=== PATIENT | male | born 1945 | race Caucasian/White ===

== ENCOUNTER 2019-07-18 00:52 | Emergency (ER) | payer OTHER, BC ==
[2019-07-18 01:12] VITALS: TEMP 97.7; BMI 35.9
--- NOTE | 2019-07-18 01:12 | PDOC ---
Attending Attestation - Resident Resident Name: Tima Osuna - ED Attending Attestation I have performed the following: I have examined & evaluated the patient, The case was reviewed & discussed with the resident, I agree w/resident's findings & plan - HPI HPI: 07/18/19 04:56 see resident hpi - Physicial Exam PE: 07/18/19 04:56 see resident exam 07/18/19 04:56 - Medical Decision Making 07/18/19 04:56 74-year-old male with low back pain after reaching for an object Patient does admit to history of low back pain and lumbar injury in the past He also admits to alcohol earlier in the day He states he has not had a fall or any blunt trauma Due to patient's age and recent alcohol use a CT scan of the abdomen and pelvis with IV contrast has been ordered to evaluate for AAA versus lumbar fracture versus retroperitoneal hematoma Patient received Robaxin Tylenol and a Lidoderm patch Plan for DC home pending results
--- NOTE | 2019-07-18 02:27 | PDOC ---
History of Present Illness - General Chief Complaint: Pain Stated Complaint: BACK PAIN Time Seen by Provider: 07/18/19 01:12 History Source: Patient Exam Limitations: No Limitations - History of Present Illness Initial Comments: 74 yo M with a hx of HTN, prostate cancer, and ETOH abuse presents to the emergency department with right flank and right thoracic back pain for 2 days. 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 He reached over to grab an item on the floor of the front passenger side and felt a strain in his back. Since then, he has had sharp pain with worsening with engagement of his torso. Denies the following: lightheadedness, palpitations, chest pain, SOB, abdominal pain, dysuria, hematuria, diarrhea, hematochezia, and FND. The pain radiates from the right thoracic back to the right flank and is 10/10 severity with worsening pain with movement. Allergies: NKDA Past History - Past Medical History Allergies/Adverse Reactions: Allergies Allergy/AdvReac Type Severity Reaction Status Date / Time shellfish derived Allergy Unknown Verified 08/24/15 09:07 No Known Drug Allergies Allergy Verified 08/24/15 09:07 shrimp Allergy Unknown Swelling Uncoded 08/24/15 09:07 Home Medications: Ambulatory Orders Valsartan/Hydrochlorothiazide [Valsartan-Hctz 160-25 mg Tab] 1 each PO DAILY 05/05 Pantoprazole Sodium [Protonix -] 40 mg PO DAILY #90 tablet.ec 01/30/16 Cancer: Yes (H/O BLADDER.) COPD: Yes GI Disorders: Yes (CECAL ADENOMA) Disorders: Yes HTN: Yes Hypercholesterolemia: Yes Liver Disease: Yes (FATTY LIVER-ALCOHOLIC LIVER DS) Psychiatric Problems: Yes (ANXIETY.) - Surgical History Orthopedic Surgery: Yes (LLE FRACTURE SURGERY) - Psycho Social/Smoking Cessation Hx Smoking Status: No Smoking History: Never smoked Have you smoked in the past 12 months: No Number of Cigarettes Smoked Daily: 0 Information on smoking cessation initiated: No Hx Alcohol Use: No Drug/Substance Use Hx: No Substance Use Type: Alcohol Hx Substance Use Treatment: Yes Review of Systems - Review of Systems Able to Perform ROS?: Yes Is the patient limited Polish proficient: No Constitutional: No: Chills, Diaphoresis, Fever, Weakness HEENTM: No: Eye Pain, Ear Pain, Nose Pain, Throat Pain, Mouth Pain Respiratory: No: Cough, Shortness of Breath, Hemoptysis Cardiac (ROS): No: Chest Pain, Lightheadedness, Palpitations, Syncope, Chest Tightness ABD/GI: No: Constipated, Diarrhea, Nausea, Rectal Bleeding, Vomiting, Tarry Stools : Yes: Flank Pain (right). No: Burning, Dysuria, Hematuria, Incontinence Musculoskeletal: Yes: Back Pain (right thoracic back pain. no midline tenderness. ). No: Joint Pain, Neck Pain Integumentary: No: Bruising, Erythema, Rash Neurological: No: Headache Psychiatric: No: Change in Appetite Endocrine: No: Unexplained Weight Loss Hematologic/Lymphatic: No: Anemia *Physical Exam - Vital Signs Last Vital Signs Temp Pulse Resp BP Pulse Ox 97.7 F 62 20 132/75 96 07/18/19 01:05 07/18/19 01:05 07/18/19 01:05 07/18/19 01:05 07/18/19 01:05 - Physical Exam General Appearance: Yes: Nourished, Appropriately Dressed, Obese. No: Apparent Distress, Alcohol on Breath, Intoxicated HEENT: positive: EOMI, SHERYL, Normal Voice, Symmetrical, Pharynx Normal, Hearing Grossly Normal. negative: Pale Conjunctivae, Scleral Icterus (R), Scleral Icterus (L), Muffled/Hoarse voice, Pharyngeal Erythema, Tonsillar Exudate, Tonsillar Erythema, Excessive drooling Neck: positive: Trachea midline, Supple. negative: Tender, Lymphadenopathy (R) , Lymphadenopathy (L), Tender lateral, Tender midline Respiratory/Chest: positive: Lungs Clear, Normal Breath Sounds. negative: Chest Tender, Respiratory Distress, Accessory Muscle Use Cardiovascular: positive: Regular Rhythm, Regular Rate, S1, S2. negative: Systolic Murmur Gastrointestinal/Abdominal: positive: Normal Bowel Sounds, Flat, Soft. negative : Tender Lymphatic: negative: Adenopathy Musculoskeletal: positive: Normal Inspection, Other (right flank pain on palpation. very reproducible tenderness in the thoracic T3-T7 right side with palpation. ). negative: CVA Tenderness, Vertebral Tenderness (no midline tenderness) Extremity: positive: Normal Capillary Refill, Normal Inspection, Normal Range of Motion. negative: Tender Integumentary: positive: Normal Color, Dry, Warm. 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 negative: EOM Palsy, Facial Droop , Numbness, Sensory Deficit ED Treatment Course - LABORATORY CBC & Chemistry Diagram: 07/18/19 02:46 07/18/19 02:46 Medical Decision Making - Medical Decision Making 74 yo M with a hx of HTN, prostate cancer, and ETOH abuse presents to the emergency department with right flank and right thoracic back pain for 2 days. 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 Initial vitals: Initial Vital Signs Temp Pulse Resp BP Pulse Ox 97.7 F 62 20 132/75 96 07/18/19 01:05 07/18/19 01:05 07/18/19 01:05 07/18/19 01:05 07/18/19 01:05 Work up: patient presents with back pain with known inciting event when he reached over. Likely msk pain, however will need to rule out UTI vs nephrolithiasis vs cholelithiasis vs AAA vs pyelonephritis Laboratory Tests 07/18/19 07/18/19 07/18/19 02:46 02:46 03:15 WBC 8.7 RBC 3.98 L Hgb 14.1 Hct 41.0 D MCV 103.0 H MCH 35.5 H MCHC 34.4 RDW 16.4 H Plt Count 102 L MPV 7.5 D Absolute Neuts (auto) 5.1 Neutrophils % 58.7 D Lymphocytes % 29.1 D Monocytes % 8.3 Eosinophils % 3.1 D Basophils % 0.8 Nucleated RBC % 0 Sodium 139 Potassium 4.6 Chloride 105 Carbon Dioxide 24 Anion Gap 10 BUN 9.0 Creatinine 0.7 Est GFR (CKD-EPI)AfAm 107.75 Est GFR (CKD-EPI)NonAf 92.97 Random Glucose 105 Calcium 8.5 Total Bilirubin 1.2 H AST 72 H ALT 48 Alkaline Phosphatase 109 Total Protein 6.6 Albumin 3.5 Urine Color Yellow Urine Appearance Clear Urine pH 5.5 Ur Specific [place] 1.006 L Urine Protein Negative Urine Glucose (UA) Negative Urine Ketones Negative Urine Blood Negative Urine Nitrite Negative Urine Bilirubin Negative Urine Urobilinogen 1.0 Ur Leukocyte Esterase Negative Robaxin, tylenol, and lidoderm and ibuprofen given for pain relief. No leukocytosis. AST elevated <2:1 ratio to ALT. UA negative for hematuria or UTI. Patient underwent a CT abdomen and pelvis to rule out AAA. Patient's report showed cholelithiasis. In addition, there was a suspected solid mass tumor on the liver. No evidence of aorta enlargement to suggest AAA. The patient was given the results of the CT and a copy of the report was printed out and given to the patient directly. Patient was instructed to follow up with their primary care physicians within the week after discharge. They described that their doctor is not available until july and I insisted they call the office within the next business day to be seen for follow up imaging as soon as possible. he agreed to the plan. Patient to be discharged. Discharge - Discharge Information Problems reviewed: Yes Clinical Impression/Diagnosis: Back pain Disposition: HOME - Admission No - Follow up/Referral Referrals: Jones Kitchen MD [Primary Care Provider] - - Patient Discharge Instructions Patient Printed Discharge Instructions: DI for Low Back Pain, DI for Thoracic Back Pain Additional Instructions: You were seen in the emergency department for your back pain. Please follow up with your primary medical doctor within 1 week after discharge for follow up care and management. You were given the CT report indicating the suspected mass on the liver. Please take ibuprofen and tylenol for pain management as directed on the label. Please return to the emergency department if you have worsening or new concerning symptoms. Thank you. - Post Discharge Activity Work/Back to School Note: Back to Work
[2019-07-18] MEDS ORDERED: METHOCARBAMOL 500 MG TABLET PO ONE (02:29)
[2019-07-18] MEDS ORDERED: LIDOCAINE 5% TOPICAL PATCH TP ONE (02:31)
[2019-07-18] MEDS ORDERED: ACETAMINOPHEN 1000 MG/100 ML VIAL (NON FORMULARY) IVPB ONE (02:31)
[2019-07-18] MEDS ORDERED: LIDOCAINE 5% TOPICAL PATCH ONE (02:34)
[2019-07-18] MEDS ORDERED: ACETAMINOPHEN INJECTION 100 ML IVPB ONE (02:34)
[2019-07-18] MEDS ORDERED: METHOCARBAMOL 500 MG TABLET ONE (02:34)
[2019-07-18 03:22] LABS: BASO % 0.8 % (0-2.0); EOS % 3.1 % (0-4.5); HEMOGLOBIN 14.1 GM/dL (11.7-16.9); LYMPH % 29.1 % (8-40); MCH 35.5 pg (25.7-33.7); MCHC 34.4 g/dl (32.0-35.9); MEAN PLT VOLUME 7.5 fl (7.5-11.1); MONO % 8.3 % (3.8-10.2); NEUT % 58.7 % (42.8-82.8); PLATELET COUNT 102 K/MM3 (134-434); RBC 3.98 M/mm3 (4.00-5.60); RDW 16.4 % (11.9-15.9); WHITE BLOOD COUNT 8.7 K/mm3 (4.0-10.0)
[2019-07-18 03:31] LABS: PH,URINE 5.5 (5.0-8.0); URINE APPEARANCE CLEAR; URINE BILIRUBIN NEGATIVE (NEGATIVE); URINE COLOR YELLOW; URINE GLUCOSE (UA) NEGATIVE (NEGATIVE); URINE KETONE NEGATIVE (NEGATIVE); URINE LEUK ESTERASE NEGATIVE (NEGATIVE); URINE NITRITE NEGATIVE (NEGATIVE); URINE PROTEIN NEGATIVE (NEGATIVE)
[2019-07-18 04:15] LABS: ALBUMIN 3.5 g/dl (3.4-5.0); BILIRUBIN,TOTAL 1.2 mg/dL (0.2-1); CALCIUM 8.5 mg/dL (8.5-10.1); CREATININE 0.7 mg/dL (0.55-1.3); POTASSIUM 4.6 mmol/L (3.5-5.1); TOT PROT 6.6 g/dl (6.4-8.2)
[2019-07-18 06:21] VITALS: BP 143/74; PULSE 58
[2019-07-18] MEDS ORDERED: IBUPROFEN 600 MG TABLET (FP) PO ONE (06:26)
[2019-07-18] MEDS ORDERED: LIDOCAINE PATCH REMOVAL MC SCH (22:00)
== END 2019-07-18 07:53 | disposition home or self-care (01) ==
LOC: JER 00:52
PROC: 3E033NZ Introduction of Analgesics, Hypnotics, Sedatives into Peripheral Vein, Percutaneous Approach (ICD-10-PCS; principal; 2019-07-18)
DX: M54.6 Pain in thoracic spine (principal); Z91.013 Allergy to seafood; I10 Essential (primary) hypertension; F10.10 Alcohol abuse, uncomplicated; X58.XXXA Exposure to other specified factors, initial encounter; Y93.89 Activity, other specified; Y92.89 Other specified places as the place of occurrence of the external cause; Y99.0 Civilian activity done for income or pay
CPT/HCPCS: 36415; 72131-TC; 74177-TC; 80053; 81003; 85025; 96374; 99283-25; J0131

== ENCOUNTER 2020-03-18 18:09 | Emergency (ER) | payer OTHER, BC ==
[2020-03-18 18:26] VITALS: TEMP 96.9; BMI 38.0
--- NOTE | 2020-03-18 18:58 | PDOC ---
History of Present Illness - General Chief Complaint: Injury Stated Complaint: FALL Time Seen by Provider: 03/18/20 18:25 History Source: Patient Exam Limitations: No Limitations - History of Present Illness Initial Comments: 03/18/20 18:54 74M PMH etoh abuse, peripheral neuropathy, and HTN BIBEMS for evaluation after having his legs give out twice today. After dinner at a restaurant, pt was walking to car and said his knees felt weak and gave out. Was assisted to his car by bystanders and patient proceeded to a bar to meet up with friends. He had a second episode of knees feeling weak and giving out while getting out of the car to the bar. Was assisted into the bar where EMS was called. He denies LOC, head strike. Denies n/v, cp/palpitations, sob. Unknown last tetanus date. Pt recently lost his and per daughter in law who phoned in, pt has been drinking heavily this week and today. Pt does endorse etoh today and daily etoh. Past History - Medical History Allergies/Adverse Reactions: Allergies Allergy/AdvReac Type Severity Reaction Status Date / Time shellfish derived Allergy Unknown Verified 03/18/20 18:26 No Known Drug Allergies Allergy Verified 03/18/20 18:26 shrimp Allergy Unknown Swelling Uncoded 03/18/20 18:26 Home Medications: Ambulatory Orders Valsartan/Hydrochlorothiazide [Valsartan-Hctz 160-25 mg Tab] 1 each PO DAILY 01/29/16 Pantoprazole Sodium [Protonix -] 40 mg PO DAILY #90 tablet.ec 01/30/16 Cancer: Yes (H/O BLADDER.) COPD: Yes GI Disorders: Yes (CECAL ADENOMA) Disorders: Yes HTN: Yes Hypercholesterolemia: Yes Liver Disease: Yes (FATTY LIVER-ALCOHOLIC LIVER DS) Psychiatric Problems: Yes (ANXIETY.) - Surgical History Orthopedic Surgery: Yes (LLE FRACTURE SURGERY) - Immunization History Td Vaccination: Yes TDAP Vaccination: Yes - Psycho-Social/Smoking History Smoking Status: No Smoking History: Never smoked Have you smoked in the past 12 months: No Number of Cigarettes Smoked Daily: 0 Information on smoking cessation initiated: No - Substance Abuse Hx (Audit-C & DAST Scrn) In the last yr the pt used illegal drug/Rx for NonMed reason: No Score: Yes response is considered Positive: 0 Screen Result (Positive result requires Nsg. DAST-10): Negative Review of Systems - Review of Systems Able to Perform ROS?: Yes Comments:: CONSTITUTIONAL: Denies F / C HEENT: Denies headache, lightheadedness, dizziness, changes in vision / hearing, sore throat, rhinorrhea RESP: Denies SOB, cough CARD: Denies chest pain, palpitations GI: Denies N / V / D, abdominal pain, inability to tolerate PO : Denies dysuria NEURO: + b/l knee weakness today PSYCH: + recent life stressors MSK: Denies back pain SKIN: Denies rashes *Physical Exam - Vital Signs Last Vital Signs Temp Pulse Resp BP Pulse Ox 96.9 F L 88 16 105/62 95 03/18/20 18:20 03/18/20 18:20 03/18/20 18:20 03/18/20 18:20 03/18/20 18:20 - Physical Exam GEN: NAD, AAOx3 HEENT: NC/AT, EOMI, PERRL, CN II-XII grossly intact. No facial asymmetry. Normal voice. Supple neck w/ FROM. CV: S1/S2, RRR, no m/r/g LUNG: CTAB, no wheezes, crackles, rales, rhonchi. GI: Soft, ndnt, +BS, no guarding, no rebound. No masses. Neg CVAT b/l. MSK: FROM, no TTP or effusions of the right knee, there is an abrasion of the right knee. Non tender extremities. No obvious deformities of all extremities. SKIN: Warm, dry, no rashes appreciated. PSYCH: Normal mood and affect. NEURO: Moving all extremities well. 5/5 strength UE and LE b/l, symmetric sensation. ambulation deferred - pt has walker at bedside ED Treatment Course - LABORATORY CBC & Chemistry Diagram: 03/18/20 14:43 03/18/20 14:43 Medical Decision Making - Medical Decision Making 03/21/20 21:47 74M BIBEMS for eval of b/l leg weakness. Neuro intact exam - ambulation deferred. Will eval for electrolyte and metabolic disturbances. Pt due for EMG with outpatient neuro shortly. - cbc, cmp - EKG - XR knee - ambulate - reassess and dispo accordingly 03/18/20 21:52 labs reviewed wound cleaned and bacitracin applied EKG 20:44 HR 81 QTc 494 NSR left axis, RBBB, no AIDA/D patient ambulates well with walker; witnessed ambulating around ED after extensive discussion with patient and his daughter in november, decision was made to discharge patient home w/ neurology follow that is scheduled for next week. questions and concerns addressed. return precautions provided. Discharge - Discharge Information Problems reviewed: Yes Clinical Impression/Diagnosis: Bilateral leg weakness Condition: Fair Disposition: HOME - Admission No - Follow up/Referral Referrals: Jones Kitchen MD [Primary Care Provider] - - Patient Discharge Instructions Additional Instructions: Follow up with your Neurologist as scheduled. Follow up with your primary care doctor in the next 10 days. Continue your home medications as prescribed. We recommend that you gradually cut back on your alcohol use. Return to the Emergency Department if you experience new or worsening symptoms, including but not limited to: - inability to walk - falls - anything that concerns you - Post Discharge Activity
[2020-03-18] MEDS ORDERED: DIPHTH,PERTUSS(ACELL),TET 0.5 ML DISP.SYRIN IM ONE ×2 (19:02→19:38)
--- NOTE | 2020-03-18 19:58 | PDOC ---
Documentation entered by Gus Loyd SCRIBE, acting as scribe for Lacy Goldman MD. Lacy Goldman MD: This documentation has been prepared by the scribe, Gus Cutler SCRIBE, under my direction and personally reviewed by me in its entirety. I confirm that the documentation accurately reflects all work, treatment, procedures, and medical decision making performed by me. Attending Attestation - Resident Resident Name: HubertMarco - ED Attending Attestation I have performed the following: I have examined & evaluated the patient, The case was reviewed & discussed with the resident, I agree w/resident's findings & plan, Exceptions are as noted - HPI HPI: 03/18/20 18:39 The patient is a 74 year old male with a significant past medical history of obesity, prostate cancer, cecal adenoma, HTN, HLD, fatty liver, and anxiety who presents to the emergency department, [facility], for evaluation of worsening bilateral leg weakness s/p two falls. The patient reports while getting out of his car, he fell to his knees both yesterday and today. He endorses chronic bilateral lower extremity weakness and peripheral neuropathy while using a walker at baseline. The patient reports he is scheduled for an EMG workup by his neurologist for this weakness. The patient denies chest/abdominal/back pain, cough, and shortness of breath. Denies fever, chills, nausea, vomiting, and/or any GI symptoms. Denies any symptoms. Denies any other symptoms. Allergies: NKDA, shellfish, shrimp Social Hx: The patient reports alcohol abuse Surgical Hx: left lower extremity fracture surgery PCP: Dr. Kitchen - Physicial Exam PE: 03/18/20 18:25 GENERAL: Slightly disheveled,obese 74 yo male HUGO with chronic leg weakness and fell onto his knee getting out of the car HEENT: Normocephalic, atraumatic. PERRLA, EOMI. NECK: Supple. Full ROM. No JVD. CARDIOVASCULAR: Regular rate and rhythm. No murmurs, rubs, or gallops. Distal pulses are 2+ and symmetric. PULMONARY: Lungs clear to auscultation bilaterally. No wheezing, rales or rhonchi. ABDOMINAL: Soft,protuberant MUSCULOSKELETAL: Abrasion to right knee,LE bilaterally, no deformities EXTREMITIES: No clubbing. Mild edema in lower extremities. No calf tenderness. SKIN: Warm and dry. NEUROLOGICAL: Alert, awake, appropriate. Cranial nerves 2-12 intact PSYCHIATRIC: Cooperative. Good eye contact. Appropriate mood and affect. 03/18/20 18:48 03/18/20 19:56 03/18/20 21:12 - Medical Decision Making 03/18/20 20:16 Plan check pt's gait/knee xray, labs and re assess and d/c home 03/18/20 21:12 pt is able to ambulate, No fracture seen on plain films 03/18/20 21:29 ekg RBBB 03/18/20 21:30 we spoke with the pt about being admitted but he refuses. He called his sister in law and she tried to convince him to stay but he will take a taxi home Discharge - Discharge Information Problems reviewed: Yes Clinical Impression/Diagnosis: Bilateral leg weakness Condition: Fair Disposition: HOME - Follow up/Referral Referrals: Jones Kitchen MD [Primary Care Provider] - - Patient Discharge Instructions Additional Instructions: Follow up with your Neurologist as scheduled. Follow up with your primary care doctor in the next 10 days. Continue your home medications as prescribed. We recommend that you gradually cut back on your alcohol use. Return to the Emergency Department if you experience new or worsening symptoms, including but not limited to: - inability to walk - falls - anything that concerns you - Post Discharge Activity
[2020-03-18 20:11] LABS: BASO % 1.3 % (0-2.0); EOS % 0.5 % (0-4.5); HEMATOCRIT 33.4 % (35.4-49); HEMOGLOBIN 11.1 GM/dL (11.7-16.9); LYMPH % 11.5 % (8-40); MCH 37.5 pg (25.7-33.7); MCHC 33.2 g/dl (32.0-35.9); MEAN CELL VOLUME 112.9 fl (80-96); MEAN PLT VOLUME 7.5 fl (7.5-11.1); MONO % 11.9 % (3.8-10.2); NEUT % 74.8 % (42.8-82.8); PLATELET COUNT 98 K/MM3 (134-434); RBC 2.96 M/mm3 (4.00-5.60); RDW 17.7 % (11.9-15.9); WHITE BLOOD COUNT 12.4 K/mm3 (4.0-10.0)
[2020-03-18 20:42] LABS: ALBUMIN 2.8 g/dl (3.4-5.0); ALK PHOS 318 U/L (45-117); ANION GAP 16 MMOL/L (8-16); BILIRUBIN,TOTAL 2.6 mg/dL (0.2-1); BLOOD UREA NITROGEN 6.7 mg/dL (7-18); CALCIUM 8.3 mg/dL (8.5-10.1); CHLORIDE 92 mmol/L (98-107); CO2 20 mmol/L (21-32); CREATININE 0.8 mg/dL (0.55-1.3); GLUCOSE,RANDOM 113 mg/dL (74-106); SGOT/AST 96 U/L (15-37); SGPT/ALT 35 U/L (13-61); SODIUM 128 mmol/L (136-145); TOT PROT 5.9 g/dl (6.4-8.2)
[2020-03-18 21:17] LABS: ANISOCYTOSIS 2+; MACROCYTOSIS 2+; PLATELET ESTIMATE DECREASED
[2020-03-18] MEDS ORDERED: BACITRACIN 0.9 GM PACKET ONE (21:30)
[2020-03-18 22:03] VITALS: BP 118/78; PULSE 86
--- NOTE | 2020-03-19 11:07 | EKG ---
Test Reason : Blood Pressure : / mmHG Vent. Rate : 081 BPM Atrial Rate : 081 BPM P-R Int : 206 ms QRS Dur : 134 ms QT Int : 426 ms P-R-T Axes : 060 -42 023 degrees QTc Int : 494 ms NORMAL SINUS RHYTHM LEFT AXIS DEVIATION RIGHT BUNDLE BRANCH BLOCK ABNORMAL ECG WHEN COMPARED WITH ECG OF 06-JAN-2015 12:56, RIGHT BUNDLE BRANCH BLOCK IS NOW PRESENT Confirmed by MD Brian, Nikos ([id number]) on 03/19/2020 11:07:27 AM Referred By: Confirmed By:Nikos Torres MD
== END 2020-03-18 22:03 | disposition home or self-care (01) ==
LOC: JER 18:09
PROC: 3E0234Z Introduction of Serum, Toxoid and Vaccine into Muscle, Percutaneous Approach (ICD-10-PCS; principal; 2020-03-18)
DX: M62.81 Muscle weakness (generalized) (principal)
CPT/HCPCS: 36415; 73562-TC-RT-FY; 80053; 82550; 84484; 85025; 90471; 90715; 93005; 93010; 99285-25

== ENCOUNTER 2020-10-17 04:07 | Day surgery (SDC) | payer BC, OTHER ==
[2020-10-16 12:36] VITALS: BMI 34.0
[2020-10-17] MEDS ORDERED: BUPIVACAINE HCL/PF 0.75% 10 ML VIAL ONE (07:13)
[2020-10-17] MEDS ORDERED: LIDOCAINE HCL/PF 1% SDV 5ML VIAL ONE (07:13)
[2020-10-17] MEDS ORDERED: SODIUM CHLORIDE 0.9% P/F 10 ML VIAL IJ ONE (07:30)
[2020-10-17] MEDS ORDERED: IOHEXOL 180 MG/1 ML ML IJ ONE (09:51)
[2020-10-17] MEDS ORDERED: LIDOCAINE HCL 1%, 10 MG/ML (20ML VIAL) INF ONE (09:52)
[2020-10-17] MEDS ORDERED: BUPIVACAINE HCL/PF 0.75% 10 ML VIAL NR ONE (09:53)
[2020-10-17 11:34] VITALS: BP 106/54; PULSE 72; TEMP 98
== END 2020-10-17 11:00 | disposition home or self-care (01) ==
LOC: JASU-SURG 04:07
PROVIDERS: ATTEND Pain Medicine Pain Medicine
PROC: BR16YZZ Fluoroscopy of Lumbar Facet Joint(s) using Other Contrast (ICD-10-PCS; 2020-10-17)
PROC: 3E0T3BZ Introduction of Anesthetic Agent into Peripheral Nerves and Plexi, Percutaneous Approach (ICD-10-PCS; principal; 2020-10-17 09:00)
DX: M47.816 Spondylosis without myelopathy or radiculopathy, lumbar region (principal)
CPT/HCPCS: 76000-TC-FY

== ENCOUNTER 2020-11-07 04:22 | Day surgery (SDC) | payer BC ==
[2020-11-06 18:27] VITALS: BMI 34.0
[~2020-11-07 04:22] MED LIST: BUPIVACAINE HCL/PF 0.75% 10 ML VIAL PNB ONE
[2020-11-07] MEDS ORDERED: BUPIVACAINE HCL/PF 0.25% (2.5MG/ML) 10 ML VIAL ONE (10:37)
[2020-11-07] MEDS ORDERED: TRIAMCINOLONE ACET 40MG/1ML VIAL ONE (10:37)
[2020-11-07] MEDS ORDERED: DEXAMETHASONE SOD PHOSPHATE/PF 10 MG/ML SDV ONE (10:37)
[2020-11-07] MEDS ORDERED: SODIUM CHLORIDE 0.9% P/F 10 ML VIAL IJ ONE (10:40)
[2020-11-07] MEDS ORDERED: IOHEXOL 180 MG/1 ML ML IJ ONE ×2 (11:22→11:33)
[2020-11-07] MEDS ORDERED: LIDOCAINE HCL 1% PRESERVATIVE FREE - 30ML VIAL IJ ONE (11:25)
[2020-11-07] MEDS ORDERED: BUPIVACAINE HCL/PF 0.75% 10 ML VIAL PNB ONE (11:34)
[2020-11-07 12:30] VITALS: BP 119/60; PULSE 78; TEMP 97.2
== END 2020-11-07 12:37 | disposition home or self-care (01) ==
LOC: JASU-SURG 04:22
PROVIDERS: ATTEND Pain Medicine Pain Medicine
PROC: 3E0T33Z Introduction of Anti-inflammatory into Peripheral Nerves and Plexi, Percutaneous Approach (ICD-10-PCS; 2020-11-07)
PROC: 3E0T3BZ Introduction of Anesthetic Agent into Peripheral Nerves and Plexi, Percutaneous Approach (ICD-10-PCS; principal; 2020-11-07 10:00)
DX: M47.816 Spondylosis without myelopathy or radiculopathy, lumbar region (principal)
CPT/HCPCS: 76000-TC-FY

== ENCOUNTER 2021-01-30 04:31 | Day surgery (SDC) | payer BC, OTHER ==
[2021-01-28 17:27] VITALS: BMI 34.0
[2021-01-30] MEDS ORDERED: DEXAMETHASONE SOD PHOSPHATE 10 MG/1 ML VIAL ONE ×2 (07:37→14:09)
[2021-01-30] MEDS ORDERED: LIDOCAINE HCL 2% (20ML MULTI-DOSE VIAL) ONE (14:05)
[2021-01-30] MEDS ORDERED: LIDOCAINE HCL/PF 1% SDV 5ML VIAL ONE (14:09)
[2021-01-30] MEDS ORDERED: DEXAMETHASONE SOD PHOSPHATE 4 MG/1 ML VIAL ONE (14:09)
[2021-01-30] MEDS ORDERED: DEXAMETHASONE SOD PHOSPHATE 10 MG/1 ML VIAL IM ONE (14:14)
[2021-01-30] MEDS ORDERED: BUPIVACAINE HCL/PF 0.75% 10 ML VIAL NR ONE (14:15)
[2021-01-30] MEDS ORDERED: LIDOCAINE HCL 2% (50ML VIAL) INF ONE (14:16)
[2021-01-30] MEDS ORDERED: IOHEXOL 180 MG/1 ML ML IJ ONE (14:33)
[2021-01-30 16:01] VITALS: BP 108/62; PULSE 66; TEMP 98.4
== END 2021-01-30 15:00 | disposition home or self-care (01) ==
LOC: JASU-SURG 04:31
PROVIDERS: ATTEND Pain Medicine Pain Medicine
PROC: 3E0T3TZ Introduction of Destructive Agent into Peripheral Nerves and Plexi, Percutaneous Approach (ICD-10-PCS; principal; 2021-01-30 12:15)
PROC: BR16YZZ Fluoroscopy of Lumbar Facet Joint(s) using Other Contrast (ICD-10-PCS; 2021-01-30 12:15)
DX: M47.816 Spondylosis without myelopathy or radiculopathy, lumbar region (principal)
CPT/HCPCS: 76000-TC-FY; J1100

== ENCOUNTER 2021-02-24 04:29 | Day surgery (SDC) | payer BC ==
[2021-02-18 15:04] VITALS: BMI 33.9
[2021-02-24] MEDS ORDERED: BUPIVACAINE HCL/PF 0.75% 10 ML VIAL ONE (07:19)
[2021-02-24] MEDS ORDERED: BUPIVACAINE HCL/PF 0.25% (2.5MG/ML) 10 ML VIAL ONE (07:19)
[2021-02-24] MEDS ORDERED: BUPIVACAINE HCL/PF 0.5% (5MG/ML) 10 ML VIAL ONE ×2 (07:19→10:08)
[2021-02-24] MEDS ORDERED: LIDOCAINE HCL/PF 1% SDV 5ML VIAL ONE (07:19)
[2021-02-24] MEDS ORDERED: SODIUM CHLORIDE 0.9% P/F 10 ML VIAL IJ ONE (08:01)
[2021-02-24] MEDS ORDERED: DEXAMETHASONE SOD PHOSPHATE 10 MG/1 ML VIAL ONE (10:21)
[2021-02-24] MEDS ORDERED: LIDOCAINE HCL 2% (20ML MULTI-DOSE VIAL) ONE (10:21)
[2021-02-24] MEDS ORDERED: LIDOCAINE HCL/PF 2% SDV 5ML VIAL ONE (10:23)
[2021-02-24] MEDS ORDERED: LIDOCAINE HCL 1% PRESERVATIVE FREE - 30ML VIAL PNB ONE ×2 (10:25)
[2021-02-24] MEDS ORDERED: LIDOCAINE HCL/PF 2% SDV 5ML VIAL SNB ONE ×2 (10:25)
[2021-02-24] MEDS ORDERED: BUPIVACAINE HCL/PF 0.25% (2.5MG/ML) 10 ML VIAL IJ ONE (10:28)
[2021-02-24] MEDS ORDERED: DEXAMETHASONE SOD PHOSPHATE 4 MG/1 ML VIAL IVPUSH ONE (10:28)
[2021-02-24] MEDS ORDERED: IOHEXOL 180 MG/1 ML ML IJ ONE (10:28)
[2021-02-24 12:02] VITALS: BP 126/72; PULSE 68; TEMP 98.3
== END 2021-02-24 11:40 | disposition home or self-care (01) ==
LOC: JASU-SURG 04:29
PROVIDERS: ATTEND Pain Medicine Pain Medicine
PROC: 3E0T3TZ Introduction of Destructive Agent into Peripheral Nerves and Plexi, Percutaneous Approach (ICD-10-PCS; principal; 2021-02-24 08:45)
PROC: BR16YZZ Fluoroscopy of Lumbar Facet Joint(s) using Other Contrast (ICD-10-PCS; 2021-02-24 08:45)
DX: M47.816 Spondylosis without myelopathy or radiculopathy, lumbar region (principal)
CPT/HCPCS: 76000-TC-FY; J1100

== ENCOUNTER 2021-05-08 04:12 | Day surgery (SDC) | payer BC ==
[2021-05-06 12:23] VITALS: BMI 34.3
[~2021-05-08 04:12] MED LIST changes: +BUPIVACAINE HCL/PF 0.5% (5MG/ML) 10 ML VIAL IJ ONE; -BUPIVACAINE HCL/PF 0.75% 10 ML VIAL PNB ONE; +IOHEXOL 180 MG/1 ML ML IJ ONE; +LIDOCAINE HCL 1% PRESERVATIVE FREE - 30ML VIAL IJ ONE; +TRIAMCINOLONE ACETONIDE 40 MG/ML 10 ML VIAL IJ ONE
[2021-05-08] MEDS ORDERED: BUPIVACAINE HCL/PF 0.5% (5MG/ML) 10 ML VIAL ONE (08:57)
[2021-05-08] MEDS ORDERED: TRIAMCINOLONE ACET 40MG/1ML VIAL ONE (08:57)
[2021-05-08] MEDS ORDERED: LIDOCAINE HCL/PF 1% SDV 5ML VIAL ONE (08:57)
[2021-05-08] MEDS ORDERED: LIDOCAINE HCL 1% PRESERVATIVE FREE - 30ML VIAL IJ ONE (09:21)
[2021-05-08] MEDS ORDERED: BUPIVACAINE HCL/PF 0.5% (5MG/ML) 10 ML VIAL IJ ONE (09:21)
[2021-05-08] MEDS ORDERED: IOHEXOL 180 MG/1 ML ML IJ ONE (09:21)
[2021-05-08 10:01] VITALS: BP 114/62; PULSE 67; TEMP 97.8
== END 2021-05-08 10:00 | disposition home or self-care (01) ==
LOC: JASU-SURG 04:12
PROVIDERS: ATTEND Pain Medicine Pain Medicine
PROC: 3E0U3BZ Introduction of Anesthetic Agent into Joints, Percutaneous Approach (ICD-10-PCS; 2021-05-08)
PROC: 3E0U33Z Introduction of Anti-inflammatory into Joints, Percutaneous Approach (ICD-10-PCS; principal; 2021-05-08 09:00)
DX: M53.3 Sacrococcygeal disorders, not elsewhere classified (principal); I10 Essential (primary) hypertension
CPT/HCPCS: 76000-TC-FY

== ENCOUNTER 2021-08-04 04:34 | Day surgery (SDC) | payer OTHER ==
[2021-07-31 17:14] VITALS: BMI 33.9
[2021-08-04] MEDS ORDERED: DEXAMETHASONE SOD PHOSPHATE 10 MG/1 ML VIAL ONE (07:26)
[2021-08-04] MEDS ORDERED: LIDOCAINE HCL 1% PRESERVATIVE FREE - 30ML VIAL IJ ONE ×2 (10:30)
[2021-08-04 12:25] VITALS: BP 131/77; PULSE 66; TEMP 97.1
== END 2021-08-04 12:27 | disposition home or self-care (01) ==
LOC: JASU-SURG 04:34
PROVIDERS: ATTEND Pain Medicine Pain Medicine
PROC: 01HY3MZ Insertion of Neurostimulator Lead into Peripheral Nerve, Percutaneous Approach (ICD-10-PCS; principal; 2021-08-04 09:30)
DX: G89.4 Chronic pain syndrome (principal); G57.81 Other specified mononeuropathies of right lower limb; M79.604 Pain in right leg
CPT/HCPCS: 64555; C1897; J1100

== ENCOUNTER 2021-09-25 04:10 | Day surgery (SDC) | payer OTHER ==
[2021-09-24 08:38] VITALS: BMI 34.5
[2021-09-25] MEDS ORDERED: BUPIVACAINE HCL/PF 0.75% 10 ML VIAL ONE (07:12)
[2021-09-25] MEDS ORDERED: LIDOCAINE HCL/PF 1% SDV 5ML VIAL ONE (07:12)
[2021-09-25] MEDS ORDERED: DEXAMETHASONE SOD PHOSPHATE 10 MG/1 ML VIAL ONE (07:31)
[2021-09-25] MEDS ORDERED: LIDOCAINE HCL/PF 2% SDV 5ML VIAL ONE (07:37)
[2021-09-25] MEDS ORDERED: IOHEXOL 180 MG/1 ML ML IJ ONE ×3 (10:44→10:55)
[2021-09-25] MEDS ORDERED: LIDOCAINE HCL 1% PRESERVATIVE FREE - 30ML VIAL IJ ONE ×3 (10:44→10:53)
[2021-09-25] MEDS ORDERED: LIDOCAINE HCL/PF 2% SDV 5ML VIAL INF ONE ×3 (10:45→10:55)
[2021-09-25] MEDS ORDERED: LIDOCAINE HCL 2% (50ML VIAL) NR ONE (10:45)
[2021-09-25] MEDS ORDERED: DEXAMETHASONE SOD PHOSPHATE 10 MG/1 ML VIAL IVPUSH ONE ×2 (10:46→11:19)
[2021-09-25] MEDS ORDERED: BUPIVACAINE HCL/PF 0.75% 10 ML VIAL NR ONE ×3 (10:47→11:19)
[2021-09-25 13:11] VITALS: BP 120/70; PULSE 68; TEMP 97
== END 2021-09-25 12:10 | disposition home or self-care (01) ==
LOC: JASU-SURG 04:10
PROVIDERS: ATTEND Pain Medicine Pain Medicine
PROC: 3E0T3TZ Introduction of Destructive Agent into Peripheral Nerves and Plexi, Percutaneous Approach (ICD-10-PCS; principal; 2021-09-25 10:00)
PROC: BR16YZZ Fluoroscopy of Lumbar Facet Joint(s) using Other Contrast (ICD-10-PCS; 2021-09-25 10:00)
DX: M47.816 Spondylosis without myelopathy or radiculopathy, lumbar region (principal); I10 Essential (primary) hypertension
CPT/HCPCS: 76000-TC-FY; J1100

== ENCOUNTER 2021-10-27 04:34 | Day surgery (SDC) | payer OTHER ==
[2021-10-22 13:55] VITALS: BMI 33.9
[2021-10-27] MEDS ORDERED: DEXAMETHASONE SOD PHOSPHATE 10 MG/1 ML VIAL ONE ×2 (12:28→13:31)
[2021-10-27] MEDS ORDERED: BUPIVACAINE HCL/PF 0.75% 10 ML VIAL PNB ONE (12:41)
[2021-10-27] MEDS ORDERED: LIDOCAINE HCL/PF 2% SDV 5ML VIAL INF ONE (12:41)
[2021-10-27] MEDS ORDERED: LIDOCAINE HCL 1% PRESERVATIVE FREE - 30ML VIAL IJ ONE (12:41)
[2021-10-27] MEDS ORDERED: DEXAMETHASONE SOD PHOSPHATE 10 MG/1 ML VIAL IM ONE (12:41)
[2021-10-27] MEDS ORDERED: IOHEXOL 180 MG/1 ML ML IJ ONE (12:41)
[2021-10-27] MEDS ORDERED: LIDOCAINE HCL/PF 1% SDV 5ML VIAL ONE (13:31)
[2021-10-27] MEDS ORDERED: BUPIVACAINE HCL/PF 0.75% 10 ML VIAL ONE (13:31)
[2021-10-27 13:49] VITALS: BP 152/72; PULSE 60; TEMP 97.1
== END 2021-10-27 13:45 | disposition home or self-care (01) ==
LOC: JASU-SURG 04:34
PROVIDERS: ATTEND Pain Medicine Pain Medicine
PROC: 3E0T3TZ Introduction of Destructive Agent into Peripheral Nerves and Plexi, Percutaneous Approach (ICD-10-PCS; principal; 2021-10-27 13:00)
PROC: BR16YZZ Fluoroscopy of Lumbar Facet Joint(s) using Other Contrast (ICD-10-PCS; 2021-10-27 13:00)
DX: M47.816 Spondylosis without myelopathy or radiculopathy, lumbar region (principal); I10 Essential (primary) hypertension
CPT/HCPCS: 76000-TC-FY; J1100

== ENCOUNTER 2021-12-04 04:21 | Day surgery (SDC) | payer OTHER ==
[2021-12-03 10:59] VITALS: BMI 22.4
[~2021-12-04 04:21] MED LIST changes: -BUPIVACAINE HCL/PF 0.5% (5MG/ML) 10 ML VIAL IJ ONE; -IOHEXOL 180 MG/1 ML ML IJ ONE; -LIDOCAINE HCL 1% PRESERVATIVE FREE - 30ML VIAL IJ ONE; +LIDOCAINE HCL/PF 2% SDV 5ML VIAL INF ONE; -TRIAMCINOLONE ACETONIDE 40 MG/ML 10 ML VIAL IJ ONE
[2021-12-04] MEDS ORDERED: LIDOCAINE HCL/PF 1% SDV 5ML VIAL ONE (07:29)
[2021-12-04] MEDS ORDERED: LIDOCAINE HCL/PF 2% SDV 5ML VIAL ONE (07:39)
[2021-12-04] MEDS ORDERED: DEXMEDETOMIDINE HCL 200 MCG/2 ML IVPB ONE (12:01)
[2021-12-04] MEDS ORDERED: GLYCOPYRROLATE 0.2 MG/1 ML VIAL ONE (12:02)
[2021-12-04] MEDS ORDERED: ONDANSETRON 4 MG/2 ML VIAL ONE (12:02)
[2021-12-04] MEDS ORDERED: KETAMINE HCL 200 MG/20 ML VIAL ONE (12:03)
[2021-12-04] MEDS ORDERED: MIDAZOLAM HCL 2 MG/2 ML SINGLE DOSE VIAL ONE (12:03)
[2021-12-04] MEDS ORDERED: ceFAZolin SODIUM 1 GM VIAL IVPB ONE (12:40)
[2021-12-04] MEDS ORDERED: ceFAZolin SODIUM 1 GM VIAL ONE (12:41)
[2021-12-04] MEDS ORDERED: LIDOCAINE HCL 1% PRESERVATIVE FREE - 30ML VIAL IJ ONE ×2 (12:49)
[2021-12-04] MEDS ORDERED: PROMETHAZINE HCL 25 MG/1 ML VIAL IVPUSH PRN (15:01)
[2021-12-04] MEDS ORDERED: ACETAMINOPHEN 325 MG TABLET (FP) PO PRN (15:01)
[2021-12-04] MEDS ORDERED: ONDANSETRON 4 MG/2 ML VIAL IVPUSH PRN (15:01)
[2021-12-04] MEDS ORDERED: oxyCODONE HCL 5 MG TABLET PO PRN ×2 (15:01)
[2021-12-04] MEDS ORDERED: LACTATED RINGERS SOLUTION 1,000 ML IV SCH (15:15)
[2021-12-04 15:58] VITALS: TEMP 97.1
[2021-12-04 16:38] VITALS: BP 100/52; PULSE 58
== END 2021-12-04 17:30 | disposition home or self-care (01) ==
LOC: JASU-SURG 04:21
PROVIDERS: ATTEND Pain Medicine Pain Medicine
PROC: 00HU3MZ Insertion of Neurostimulator Lead into Spinal Canal, Percutaneous Approach (ICD-10-PCS; 2021-12-04)
PROC: 01HY3MZ Insertion of Neurostimulator Lead into Peripheral Nerve, Percutaneous Approach (ICD-10-PCS; principal; 2021-12-04 11:15)
DX: M96.1 Postlaminectomy syndrome, not elsewhere classified (principal)
CPT/HCPCS: 63650; C1897; 76000-TC-FY

== ENCOUNTER 2022-09-24 04:04 | Day surgery (SDC) | payer OTHER ==
[2022-09-22 14:34] VITALS: BMI 22.4
[~2022-09-24 04:04] MED LIST changes: +BUPIVACAINE HCL/PF 0.75% 10 ML VIAL NR ONE; +LIDOCAINE 1% P/F 10 MG/ML VIAL INF ONE; -LIDOCAINE HCL/PF 2% SDV 5ML VIAL INF ONE
[2022-09-24] MEDS ORDERED: BUPIVACAINE HCL/PF 0.75% 10 ML VIAL ONE (07:47)
[2022-09-24] MEDS ORDERED: LIDOCAINE HCL/PF 1% SDV 5ML VIAL ONE (07:47)
[2022-09-24] MEDS ORDERED: BUPIVACAINE HCL/PF 0.75% 10 ML VIAL NR ONE (13:23)
[2022-09-24] MEDS ORDERED: LIDOCAINE 1% P/F 10 MG/ML VIAL INF ONE (13:23)
[2022-09-24 15:09] VITALS: BP 120/65; PULSE 57; RESP 17; TEMP 97.8
[2022-09-24] MEDS ORDERED: ACETAMINOPHEN 500 MG TABLET (FP) PO PRN (15:59)
== END 2022-09-24 13:55 | disposition home or self-care (01) ==
LOC: JASU-SURG 04:04
PROVIDERS: ATTEND Pain Medicine Pain Medicine
PROC: BR16YZZ Fluoroscopy of Lumbar Facet Joint(s) using Other Contrast (ICD-10-PCS; 2022-09-24)
PROC: 3E0T3BZ Introduction of Anesthetic Agent into Peripheral Nerves and Plexi, Percutaneous Approach (ICD-10-PCS; principal; 2022-09-24 12:45)
DX: M47.816 Spondylosis without myelopathy or radiculopathy, lumbar region (principal)
CPT/HCPCS: 76000-TC-FY

== ENCOUNTER 2022-10-15 03:55 | Day surgery (SDC) | payer OTHER ==
[2022-10-13 13:10] VITALS: BMI 22.4
[~2022-10-15 03:55] MED LIST changes: +DEXAMETHASONE SOD PHOSPHATE 10 MG/1 ML VIAL IVPUSH ONE; -LIDOCAINE 1% P/F 10 MG/ML VIAL INF ONE; +LIDOCAINE HCL 1% PRESERVATIVE FREE - 30ML VIAL IJ ONE; +LIDOCAINE HCL/PF 2% SDV 5ML VIAL SQ ONE
[2022-10-15] MEDS ORDERED: LIDOCAINE HCL/PF 2% SDV 5ML VIAL ONE (07:14)
[2022-10-15] MEDS ORDERED: LIDOCAINE HCL 1% PRESERVATIVE FREE - 30ML VIAL IJ ONE (09:21)
[2022-10-15] MEDS ORDERED: LIDOCAINE HCL/PF 2% SDV 5ML VIAL SQ ONE (09:21)
[2022-10-15] MEDS ORDERED: DEXAMETHASONE SOD PHOSPHATE 10 MG/1 ML VIAL IVPUSH ONE (09:23)
[2022-10-15] MEDS ORDERED: BUPIVACAINE HCL/PF 0.75% 10 ML VIAL NR ONE (09:28)
[2022-10-15 13:46] VITALS: RESP 18
[2022-10-15 13:50] VITALS: BP 140/71; PULSE 60; TEMP 98.8
[2022-10-15] MEDS ORDERED: ACETAMINOPHEN 500 MG TABLET (FP) PO PRN (16:07)
== END 2022-10-15 10:53 | disposition home or self-care (01) ==
LOC: JASU-SURG 03:55
PROVIDERS: ATTEND Pain Medicine Pain Medicine
PROC: 015B3ZZ Destruction of Lumbar Nerve, Percutaneous Approach (ICD-10-PCS; principal; 2022-10-15 09:30)
DX: M47.816 Spondylosis without myelopathy or radiculopathy, lumbar region (principal)
CPT/HCPCS: 76000-TC-FY; J1100

== ENCOUNTER 2022-11-23 03:40 | Day surgery (SDC) | payer OTHER ==
[2022-11-18 14:31] VITALS: BMI 37.3
[2022-11-23] MEDS ORDERED: LIDOCAINE HCL/PF 1% SDV 5ML VIAL ONE (07:22)
[2022-11-23] MEDS ORDERED: DEXAMETHASONE SOD PHOSPHATE 10 MG/1 ML VIAL ONE (07:22)
[2022-11-23] MEDS ORDERED: BUPIVACAINE HCL/PF 0.75% 10 ML VIAL ONE (07:22)
[2022-11-23] MEDS ORDERED: LIDOCAINE HCL 1% PRESERVATIVE FREE - 30ML VIAL IJ ONE (12:20)
[2022-11-23] MEDS ORDERED: DEXAMETHASONE SOD PHOSPHATE 10 MG/1 ML VIAL IVPUSH ONE (12:22)
[2022-11-23] MEDS ORDERED: BUPIVACAINE HCL/PF 0.75% 10 ML VIAL NR ONE (12:28)
[2022-11-23] MEDS ORDERED: LIDOCAINE HCL/PF 2% SDV 5ML VIAL INF ONE (12:28)
[2022-11-23] MEDS ORDERED: ACETAMINOPHEN 500 MG TABLET (FP) PO PRN (12:55)
[2022-11-23 13:32] VITALS: RESP 20
[2022-11-23 13:38] VITALS: BP 122/60; PULSE 56; TEMP 97.6
== END 2022-11-23 13:30 | disposition home or self-care (01) ==
LOC: JASU-SURG 03:40
PROVIDERS: ATTEND Pain Medicine Pain Medicine
PROC: 015B3ZZ Destruction of Lumbar Nerve, Percutaneous Approach (ICD-10-PCS; principal; 2022-11-23 13:15)
DX: M47.816 Spondylosis without myelopathy or radiculopathy, lumbar region (principal)
CPT/HCPCS: 76000-TC-FY; J1100

== ENCOUNTER 2023-05-30 04:44 | Day surgery (SDC) | payer OTHER ==
[2023-05-25 11:36] VITALS: BMI 36.8
[2023-05-30 10:08] VITALS: TEMP 98
[2023-05-30 11:19] VITALS: BP 160/80; PULSE 57; RESP 18
[2023-05-30 11:26] LABS: BASO % 1.2 % (0-2.0); EOS % 1.5 % (0-4.5); HEMOGLOBIN 12.7 GM/dL (11.7-16.9); MCH 30.8 pg (25.7-33.7); MCHC 34.3 g/dl (32.0-35.9); MEAN CELL VOLUME 89.6 fl (80-96); MONO % 9.1 % (3.8-10.2); NEUT % 69.2 % (42.8-82.8); PLATELET COUNT 97 10^3/uL (134-434); RBC 4.13 M/mm3 (4.00-5.60); RDW 17.1 % (11.9-15.9)
[2023-05-30 11:33] LABS: INR 1.28 (0.83-1.09); PROTHROMBIN TIME (PATIENT) 14.8 SEC (9.7-13.0)
[2023-05-30 11:53] LABS: ALBUMIN 3.7 g/dl (3.4-5.0); BLOOD UREA NITROGEN 11.6 mg/dL (7-18); CALCIUM 8.7 mg/dL (8.5-10.1)
[2023-05-30 11:56] LABS: CREATININE 0.9 mg/dL (0.55-1.3)
[2023-05-30 11:58] LABS: TOT PROT 6.5 g/dl (6.4-8.2)
== END 2023-05-30 11:45 | disposition home or self-care (01) ==
LOC: JASU-ENDO 04:44
PROVIDERS: ATTEND Internal Medicine Gastroenterology
PROC: 0DB98ZX Excision of Duodenum, Via Natural or Artificial Opening Endoscopic, Diagnostic (ICD-10-PCS; 2023-05-30)
PROC: 0DB78ZX Excision of Stomach, Pylorus, Via Natural or Artificial Opening Endoscopic, Diagnostic (ICD-10-PCS; 2023-05-30)
PROC: 0DB68ZX Excision of Stomach, Via Natural or Artificial Opening Endoscopic, Diagnostic (ICD-10-PCS; 2023-05-30)
PROC: 0DBL8ZX Excision of Transverse Colon, Via Natural or Artificial Opening Endoscopic, Diagnostic (ICD-10-PCS; principal; 2023-05-30 09:00)
DX: Z12.11 Encounter for screening for malignant neoplasm of colon (principal); D12.3 Benign neoplasm of transverse colon; K57.30 Diverticulosis of large intestine without perforation or abscess without bleeding; K64.8 Other hemorrhoids; Z86.010 Personal history of colon polyps; K31.819 Angiodysplasia of stomach and duodenum without bleeding; K29.50 Unspecified chronic gastritis without bleeding
CPT/HCPCS: 36415; 80053; 82105; 82378; 85025; 85610; 86140; 88305-TC; 88342-TC

== ENCOUNTER 2023-06-06 19:29 | Emergency (ER) | payer OTHER ==
[2023-06-06 20:10] VITALS: BP 128/92; PULSE 68; RESP 18; TEMP 98.9; BMI 38.7
[2023-06-06 22:22] LABS: BASO % 0.7 % (0-2.0); EOS % 0.8 % (0-4.5); HEMATOCRIT 38.9 % (35.4-49); HEMOGLOBIN 13.2 GM/dL (11.7-16.9); LYMPH % 14.3 % (8-40); MCH 30.3 pg (25.7-33.7); MEAN CELL VOLUME 89.3 fl (80-96); MEAN PLT VOLUME 7.2 fl (7.5-11.1); MONO % 8.1 % (3.8-10.2); NEUT % 76.1 % (42.8-82.8); PLATELET COUNT 96 10^3/uL (134-434); RBC 4.35 M/mm3 (4.00-5.60); RDW 17.4 % (11.9-15.9); WHITE BLOOD COUNT 13.8 K/mm3 (4.0-10.0)
[2023-06-06 22:41] LABS: POTASSIUM 4.1 mmol/L (3.5-5.1)
[2023-06-06 22:44] LABS: CALCIUM 9.4 mg/dL (8.5-10.1)
[2023-06-06 22:45] LABS: ALBUMIN 4.1 g/dl (3.4-5.0)
[2023-06-06 22:48] LABS: CREATININE 1.1 mg/dL (0.55-1.3)
[2023-06-06 22:49] LABS: TOT PROT 7.2 g/dl (6.4-8.2)
[2023-06-06 22:50] LABS: BILIRUBIN,TOTAL 0.9 mg/dL (0.2-1)
== END 2023-06-07 01:52 | disposition home or self-care (01) ==
LOC: JER 19:29
DX: R10.30 Lower abdominal pain, unspecified (principal); K62.5 Hemorrhage of anus and rectum; R19.00 Intra-abdominal and pelvic swelling, mass and lump, unspecified site
CPT/HCPCS: 36415; 71046-TC-FY; 74177-TC; 80053; 82272; 83690; 84484; 85025; 93005; 93010; 99285-25

== ENCOUNTER 2023-11-04 04:20 | Day surgery (SDC) | payer OTHER ==
[2023-11-01 19:00] VITALS: BMI 37.1
[2023-11-04] MEDS ORDERED: DEXAMETHASONE SOD PHOSPHATE 10 MG/1 ML VIAL ONE (07:26)
[2023-11-04] MEDS ORDERED: BUPIVACAINE HCL/PF 0.75% 10 ML VIAL ONE (07:26)
[2023-11-04] MEDS ORDERED: LIDOCAINE HCL/PF 2% SDV 5ML VIAL ONE (07:26)
[2023-11-04] MEDS ORDERED: LIDOCAINE HCL/PF 1% SDV 5ML VIAL ONE (07:26)
[2023-11-04 08:18] VITALS: RESP 20
[2023-11-04] MEDS: LIDOCAINE 1% P/F 10 MG/ML VIAL INF ONE ×2 (10:16→10:41)
[2023-11-04] MEDS: LIDOCAINE HCL/PF 2% SDV 5ML VIAL INF ONE ×2 (10:18→10:47)
[2023-11-04] MEDS: DEXAMETHASONE SOD PHOSPHATE 10 MG/1 ML VIAL IM ONE ×2 (10:19→10:53)
[2023-11-04] MEDS: BUPIVACAINE HCL/PF 0.75% 10 ML VIAL CAUD ONE (10:55)
[2023-11-04 11:18] VITALS: BP 138/77; PULSE 66; TEMP 98
[2023-11-04] MEDS ORDERED: ACETAMINOPHEN 500 MG TABLET (FP) PO PRN (12:33)
== END 2023-11-04 11:36 | disposition home or self-care (01) ==
LOC: JASU-SURG 04:20
PROVIDERS: ATTEND Pain Medicine Pain Medicine
PROC: 015B3ZZ Destruction of Lumbar Nerve, Percutaneous Approach (ICD-10-PCS; principal; 2023-11-04 09:30)
DX: M47.816 Spondylosis without myelopathy or radiculopathy, lumbar region (principal)
CPT/HCPCS: 76000-TC-FY; J1100

== ENCOUNTER 2023-12-09 04:03 | Day surgery (SDC) | payer OTHER ==
[2023-12-05 14:25] VITALS: BMI 37.1
[2023-12-09] MEDS ORDERED: BUPIVACAINE HCL/PF 0.75% 10 ML VIAL ONE (07:17)
[2023-12-09] MEDS ORDERED: LIDOCAINE HCL/PF 2% SDV 5ML VIAL ONE (07:17)
[2023-12-09] MEDS ORDERED: LIDOCAINE HCL/PF 1% SDV 5ML VIAL ONE (07:18)
[2023-12-09] MEDS ORDERED: DEXAMETHASONE SOD PHOSPHATE 10 MG/1 ML VIAL ONE (07:18)
[2023-12-09] MEDS: LIDOCAINE HCL 1% PRESERVATIVE FREE - 30ML VIAL IJ ONE (08:27)
[2023-12-09] MEDS: BUPIVACAINE HCL/PF 0.75% 10 ML VIAL NR ONE (08:29)
[2023-12-09] MEDS: LIDOCAINE HCL 2% (50ML VIAL) NR ONE (08:30)
[2023-12-09] MEDS: DEXAMETHASONE SOD PHOSPHATE 10 MG/1 ML VIAL IVPUSH ONE (08:32)
[2023-12-09 09:02] VITALS: BP 135/60; PULSE 48; RESP 18; TEMP 97.8
[2023-12-09] MEDS ORDERED: ACETAMINOPHEN 500 MG TABLET (FP) PO PRN (14:14)
== END 2023-12-09 09:14 | disposition home or self-care (01) ==
LOC: JASU-SURG 04:03
PROVIDERS: ATTEND Pain Medicine Pain Medicine
PROC: 015B3ZZ Destruction of Lumbar Nerve, Percutaneous Approach (ICD-10-PCS; principal; 2023-12-09 08:45)
DX: M47.816 Spondylosis without myelopathy or radiculopathy, lumbar region (principal)
CPT/HCPCS: 76000-TC-FY; J1100

== ENCOUNTER 2025-01-21 13:20 | Emergency (ER) | payer OTHER ==
[2025-01-21 13:39] VITALS: BP 154/78; PULSE 94; RESP 18; TEMP 97.1; BMI 36.6
== END 2025-01-21 16:50 | disposition left against medical advice (07) ==
LOC: JERFT 13:20
DX: S01.01XA Laceration without foreign body of scalp, initial encounter (principal); W22.8XXA Striking against or struck by other objects, initial encounter; Y99.0 Civilian activity done for income or pay
CPT/HCPCS: 99282-25